=== PATIENT | male | born 1970 | race Caucasian/White ===

== ENCOUNTER 2023-09-18 14:26 | Emergency (ER) | payer BC, SELFPAY ==
[2023-09-18 14:36] VITALS: BP 172/98; PULSE 55; RESP 18; TEMP 37.1; O2SAT 96; BMI 30.1
--- NOTE | 2023-09-18 17:15 | MR_ITS ---
Patient: ISRA Sen [facility] [place] Facility:?[facility] Patient ID:?[id number] Site Patient ID:?[id number]. Site :?1970 Study:?MRI-Head MRA W/O-09/18/2023 6:44:42 PM Ordering Physician:DELICIA Final Report: Indication: Neuro deficit. Stroke. Technique: MRI Head: Performed without and with intravenous contrast. MRA Head: Performed without IV contrast. MRA Neck: Performed without and with intravenous contrast. Contrast: 20 cc Dotarem. Comparison: None relevant available at the time of interpretation. Findings: MRI Head: The corpus callosum, pituitary gland and clivus appear intact. Craniocervical junction is preserved. There is no restricted diffusion. No intracranial hemorrhage. The ventricles are proportionate to the cerebral sulci. The 4th ventricle appears midline. The basal cisterns appear patent. No abnormal extra-axial fluid collection identified. There is no intracranial mass, abnormal mass-effect or midline shift identified. No abnormal enhancement. The orbits are preserved. MRA Head: The visualized first and second order intracranial vessels are unremarkable. No occlusion/filling defect or acquired arterial stenosis identified. No aneurysm or vascular malformation seen. MRA Neck: No evidence for hemodynamically significant internal carotid artery stenosis by NASCET criteria. Right internal carotid artery tortuosity. The cervical segments of both vertebral arteries are patent. The visualized portions of the aortic arch, great vessel origins and proximal subclavian arteries are unremarkable. Impression: MRI Head: 1. No acute/subacute infarct. MRA Head: 1. No hemodynamically significant stenosis or occlusion. 2. No aneurysm. MRA Neck: 1. No evidence for hemodynamically significant ICA stenosis by NASCET criteria. Dictated by Angel Mendosa MD @ 09/18/2023 7:20:17 PM Signed by:?Angel Mendosa MD @09/18/2023 7:20:17 PM (Electronic Signature)
--- NOTE | 2023-09-18 17:15 | MR_ITS ---
Patient: ISRA Sen [facility] Facility:?[facility] Patient ID:?[id number] Site Patient ID:?[id number]. Site :?1970 Study:?MRI-Head W/ and W/O Cont 20 CC DOATERM-09/18/2023 6:43:13 PM Ordering Physician:DELICIA Final Report: Indication: Neuro deficit. Stroke. Technique: MRI Head: Performed without and with intravenous contrast. MRA Head: Performed without IV contrast. MRA Neck: Performed without and with intravenous contrast. Contrast: 20 cc Dotarem. Comparison: None relevant available at the time of interpretation. Findings: MRI Head: The corpus callosum, pituitary gland and clivus appear intact. Craniocervical junction is preserved. There is no restricted diffusion. No intracranial hemorrhage. The ventricles are proportionate to the cerebral sulci. The 4th ventricle appears midline. The basal cisterns appear patent. No abnormal extra-axial fluid collection identified. There is no intracranial mass, abnormal mass-effect or midline shift identified. No abnormal enhancement. The orbits are preserved. MRA Head: The visualized first and second order intracranial vessels are unremarkable. No occlusion/filling defect or acquired arterial stenosis identified. No aneurysm or vascular malformation seen. MRA Neck: No evidence for hemodynamically significant internal carotid artery stenosis by NASCET criteria. Right internal carotid artery tortuosity. The cervical segments of both vertebral arteries are patent. The visualized portions of the aortic arch, great vessel origins and proximal subclavian arteries are unremarkable. Impression: MRI Head: 1. No acute/subacute infarct. MRA Head: 1. No hemodynamically significant stenosis or occlusion. 2. No aneurysm. MRA Neck: 1. No evidence for hemodynamically significant ICA stenosis by NASCET criteria. Dictated by Angel Mendosa MD @ 09/18/2023 7:19:42 PM Signed by:?Angel Mendosa MD @09/18/2023 7:19:42 PM (Electronic Signature)
--- NOTE | 2023-09-18 17:15 | MR_ITS ---
Patient: ISRA Sen [facility] Facility:?[facility] Patient ID:?[id number] Site Patient ID:?[id number]. Site :?1970 Study:?MRI-Neck Angio W/ and W/O Cont 20 CC DOATERM-09/18/2023 6:45:58 PM Ordering Physician:DELICIA Final Report: Indication: Neuro deficit. Stroke. Technique: MRI Head: Performed without and with intravenous contrast. MRA Head: Performed without IV contrast. MRA Neck: Performed without and with intravenous contrast. Contrast: 20 cc Dotarem. Comparison: None relevant available at the time of interpretation. Findings: MRI Head: The corpus callosum, pituitary gland and clivus appear intact. Craniocervical junction is preserved. There is no restricted diffusion. No intracranial hemorrhage. The ventricles are proportionate to the cerebral sulci. The 4th ventricle appears midline. The basal cisterns appear patent. No abnormal extra-axial fluid collection identified. There is no intracranial mass, abnormal mass-effect or midline shift identified. No abnormal enhancement. The orbits are preserved. MRA Head: The visualized first and second order intracranial vessels are unremarkable. No occlusion/filling defect or acquired arterial stenosis identified. No aneurysm or vascular malformation seen. MRA Neck: No evidence for hemodynamically significant internal carotid artery stenosis by NASCET criteria. Right internal carotid artery tortuosity. The cervical segments of both vertebral arteries are patent. The visualized portions of the aortic arch, great vessel origins and proximal subclavian arteries are unremarkable. Impression: MRI Head: 1. No acute/subacute infarct. MRA Head: 1. No hemodynamically significant stenosis or occlusion. 2. No aneurysm. MRA Neck: 1. No evidence for hemodynamically significant ICA stenosis by NASCET criteria. Dictated by Angel Mendosa MD @ 09/18/2023 7:20:43 PM Signed by:?Angel Mendosa MD @09/18/2023 7:20:43 PM (Electronic Signature)
--- NOTE | 2023-09-18 17:33 | ED.NEUROSD ---
HPI - Neuro Symptoms/Deficit General Chief Complaint: Neuro Symptoms/Altered Deficit Stated Complaint: head pain, right side body pain, blurry vision Time Seen by Provider: 09/18/23 16:59 History of Present Illness HPI Narrative: This 53-year-old male comes in stating that he felt a pop in his head about 2 weeks ago with some pain that was deep in his head. He also had some hearing changes in his right ear. He states that since then he feels unsteady when walking and reports that he seems to stumble about every 50 ft. He also reports some weakness in his right hand with difficulty holding onto things at times. He states that this happened about 2 weeks ago and this is his 1st visit to a doctor because he reports that it seems to be getting worse. He is not on any medications except for some vitamins or herbal meds. He does not report any speech change. He states that it takes more concentration to interpret what he is hearing in conversation. Related Data Previous Rx's Medication Instructions Recorded hydrochlorothiazide 25 mg tablet 25 mg PO DAILY #30 tabs 09/18/23 meclizine 25 mg tablet 25 mg PO QID #20 tabs 09/18/23 ondansetron HCl 4 mg tablet 4 mg PO Q6H #20 tabs 09/18/23 Allergies Allergy/AdvReac Type Severity Reaction Status Date / Time latex Allergy Unknown Verified 09/18/23 14:42 Review of Systems Status of ROS: Reports: 10 or more systems reviewed and unremarkable except as noted in History and below Narrative: Constitutional: No fevers, no weight gain or loss. Eyes: No discharge. No vision changes. HENT: No congestion, no sore throat, no ear pain. Cardiovascular: No chest pain, no palpitations. Respiratory: No shortness of breath, no wheezes, no cough. Gastrointestinal: No abdominal pain, no vomiting, no diarrhea. Genitourinary: No dysuria, no hematuria. Musculoskeletal: Normal range of motion. Skin: No rashes, no pruritis. Neurological: He feels off balance. He reports some weakness in his right hand. He has hearing changes in his right ear. Endo/Heme/Allergies: No bruising or bleeding. No polydipsia. Pysch: no suicidality, no anxiety, no insomnia. All other systems reviewed and are negative. PFSH PFSH Social History Smoking Status: Current every day smoker What tobacco products do you use: cigarettes Smoking packs per day: 0.5 Smoking cigarettes per day: 10.0 How often do you have a drink containing alcohol: never How often do you have six or more drinks on one occasion: Never AUDIT-C Alcohol total score: 0 Non-prescribed substance use: denies use service: No Exam Narrative: Exam Narrative: Constitutional: Well-developed, well-nourished, no acute distress. HEENT: Normocephalic, atraumatic. Neck: Normal range of motion. Nontender. Supple. Heart: Regular. No murmurs. Normal rate. Intact distal pulses. Lungs: Clear to auscultation. No chest discomfort. No wheezes, rhonchi, or rales. Abdomen: Normal bowel sounds. Nontender. No rebound tenderness. Genitalia: Deferred. Back: No midline tenderness. Normal range of motion. Extremities: Normal range of motion. No injury. Skin: Intact. No rash. Warm. No erythema or pallor. Neurologic: No altered sensation. Alert and oriented. No facial asymmetry. Tongue is midline. Jcfllw-[id number]-jqos is normal. Hitting Coach strength is equal bilaterally. No pronator drift. He is able to raise each leg from the bed to my hand. Psychiatric: No suicidality. No anxiety or depression. No insomnia. Nursing notes and vitals signs are reviewed. Const: Vital Signs, click to edit/add: Vital Signs - 24 hr 09/18/23 14:36 09/18/23 20:07 Temperature 98.8 F Pulse Rate [Pulse Oximeter] 55 L 44 L Respiratory Rate 18 20 Blood Pressure [Ri ght Upper Arm] 172/98 H 150/93 H Pulse Oximetry 96 97 Oxygen Delivery Me thod Room Air Room Air Course Vital Signs Vital signs: Initial Vital Signs Temperature 98.8 F 09/18/23 14:36 Temperature Source Temporal Artery Scan 09/18/23 14:36 Pulse Rate 55 L 09/18/23 14:36 Respiratory Rate 18 09/18/23 14:36 Blood Pressure 172/98 H 09/18/23 14:36 Blood Pressure Mean 122 H 09/18/23 14:36 Pulse Oximetry 96 09/18/23 14:36 Oxygen Delivery Method Room Air 09/18/23 14:36 Vital Signs Temperature 98.8 F 09/18/23 14:36 Pulse Rate 55 L 09/18/23 14:36 Respiratory Rate 18 09/18/23 14:36 Blood Pressure 172/98 H 09/18/23 14:36 Pulse Oximetry 96 09/18/23 14:36 Oxygen Delivery Method Room Air 09/18/23 14:36 Temperature 98.8 F 09/18/23 14:36 Pulse Rate 44 L 09/18/23 20:07 Respiratory Rate 20 09/18/23 20:07 Blood Pressure 150/93 H 09/18/23 20:07 Pulse Oximetry 97 09/18/23 20:07 Oxygen Delivery Method Room Air 09/18/23 20:07 MDM - Neuro Symptoms/Deficit MDM Narrative Medical decision making narrative: This patient comes in with symptoms as described above. His neurologic exam actually was completely normal. I did initially have suspicion of stroke or tumor causing these symptoms. I did order MRI of head and neck and these results return with normal findings. The patient described right-sided symptoms with hearing changes and vertigo symptoms which may be due to Meniere's disease. He has a normal neurologic exam and with the normal MRI results this diagnosis becomes more likely. The patient did receive an oral dose of hydrochlorothiazide 25 mg and a prescription for the same along with prescriptions for Zofran and meclizine. I advised him to follow-up with ear nose and throat clinic. Lab Data Labs: Lab Results 09/18/23 09/18/23 09/18/23 Range/Units 17:30 17:30 17:30 WBC 11.46 H (4.50-11.00) K/uL RBC 5.36 (4.30-5.90) m/uL Hgb 16.2 (13.5-17.5) gm/dL Hct 49.2 (37.0-53.0) % MCV 92 (80-100) fL MCH 30 (26-34) pg MCHC 33 (32-36) gm/dL RDW Coeff of Joe 13.1 (11.5-15.5) % Plt Count 257 (140-440) K/uL Neut % (Auto) 73.4 H (42.0-72.0) % Lymph % (Auto) 20.2 (20-44) % Rutherford % (Auto) 4.2 (0.0-11.0) % Eos % (Auto) 1.0 (0.0-7.0) % Baso % (Auto) 0.3 (0.0-3.0) % Neut # (Auto) 8.40 H (1.7-7.0) K/uL Lymph # (Auto) 2.30 (0.90-2.90) K/uL Rutherford # (Auto) 0.50 (0.00-0.90) K/UL Eos # (Auto) 0.10 (0.00-0.50) K/uL Baso # (Auto) 0.00 (0.00-0.30) K/uL Abs Immat Gran (auto) 0.10 (0.00-0.30) K/uL Imm/Tot Granulo (auto) 0.9 % INR 1.04 (0.91-1.10) Sodium 141 (135-149) mmol/L Potassium 4.0 (3.6-5.1) mmol/L Chloride 106 (96-114) mmol/L Carbon Dioxide 23 (20-32) mmol/L Anion Gap 12 (7-15) mEq/L BUN 12 (7-30) mg/dL Creatinine 0.8 (0.5-1.5) mg/dL Estimated Creat Clear 119.90 Estimated GFR 107 ml/min Glucose 91 (60-115) mg/dL Calcium 9.6 (8.4-10.6) mg/dL Total Bilirubin 0.9 Cancelled (0.1-1.5) mg/dL Direct Bilirubin 0.3 Cancelled (0.0-0.5) mg/dL AST 25 (12-35) U/L ALT (4-50) U/L Alkaline Phosphatase (40-150) U/L Total Protein (6.0-8.3) g/dL Albumin (3.3-5.0) g/dL 09/18/23 09/18/23 09/18/23 Range/Units 17:30 17:30 17:30 WBC (4.50-11.00) K/uL RBC (4.30-5.90) m/uL Hgb (13.5-17.5) gm/dL Hct (37.0-53.0) % MCV (80-100) fL MCH (26-34) pg MCHC (32-36) gm/dL RDW Coeff of Joe (11.5-15.5) % Plt Count (140-440) K/uL Neut % (Auto) (42.0-72.0) % Lymph % (Auto) (20-44) % Rutherford % (Auto) (0.0-11.0) % Eos % (Auto) (0.0-7.0) % Baso % (Auto) (0.0-3.0) % Neut # (Auto) (1.7-7.0) K/uL Lymph # (Auto) (0.90-2.90) K/uL Rutherford # (Auto) (0.00-0.90) K/UL Eos # (Auto) (0.00-0.50) K/uL Baso # (Auto) (0.00-0.30) K/uL Abs Immat Gran (auto) (0.00-0.30) K/uL Imm/Tot Granulo (auto) % INR (0.91-1.10) Sodium (135-149) mmol/L Potassium (3.6-5.1) mmol/L Chloride (96-114) mmol/L Carbon Dioxide (20-32) mmol/L Anion Gap (7-15) mEq/L BUN (7-30) mg/dL Creatinine (0.5-1.5) mg/dL Estimated Creat Clear Estimated GFR ml/min Glucose (60-115) mg/dL Calcium (8.4-10.6) mg/dL Total Bilirubin (0.1-1.5) mg/dL Direct Bilirubin (0.0-0.5) mg/dL AST Cancelled (12-35) U/L ALT 21 Cancelled (4-50) U/L Alkaline Phosphatase 73 Cancelled (40-150) U/L Total Protein 8.8 H (6.0-8.3) g/dL Albumin (3.3-5.0) g/dL 09/18/23 09/18/23 Range/Units 17:30 17:30 WBC (4.50-11.00) K/uL RBC (4.30-5.90) m/uL Hgb (13.5-17.5) gm/dL Hct (37.0-53.0) % MCV (80-100) fL MCH (26-34) pg MCHC (32-36) gm/dL RDW Coeff of Joe (11.5-15.5) % Plt Count (140-440) K/uL Neut % (Auto) (42.0-72.0) % Lymph % (Auto) (20-44) % Rutherford % (Auto) (0.0-11.0) % Eos % (Auto) (0.0-7.0) % Baso % (Auto) (0.0-3.0) % Neut # (Auto) (1.7-7.0) K/uL Lymph # (Auto) (0.90-2.90) K/uL Rutherford # (Auto) (0.00-0.90) K/UL Eos # (Auto) (0.00-0.50) K/uL Baso # (Auto) (0.00-0.30) K/uL Abs Immat Gran (auto) (0.00-0.30) K/uL Imm/Tot Granulo (auto) % INR (0.91-1.10) Sodium (135-149) mmol/L Potassium (3.6-5.1) mmol/L Chloride (96-114) mmol/L Carbon Dioxide (20-32) mmol/L Anion Gap (7-15) mEq/L BUN (7-30) mg/dL Creatinine (0.5-1.5) mg/dL Estimated Creat Clear Estimated GFR ml/min Glucose (60-115) mg/dL Calcium (8.4-10.6) mg/dL Total Bilirubin (0.1-1.5) mg/dL Direct Bilirubin (0.0-0.5) mg/dL AST (12-35) U/L ALT (4-50) U/L Alkaline Phosphatase (40-150) U/L Total Protein Cancelled (6.0-8.3) g/dL Albumin 5.0 Cancelled (3.3-5.0) g/dL Imaging Data MRI - head: Radiologist's impression: MRI Head: 1. No acute/subacute infarct. MRA Head: 1. No hemodynamically significant stenosis or occlusion. 2. No aneurysm. MRA Neck: 1. No evidence for hemodynamically significant ICA stenosis by NASCET criteria. Discharge Plan Discharge Clinical Impression: Meniere's disease Patient Disposition: Home w/ Parent or Adult Condition: Unchanged Additional Instructions: Take medications as prescribed. Follow up [facility], Dr. Palma or Dr. Randle. Call [phone] for appointment. Return if worsening. Prescriptions: New ondansetron HCl 4 mg tablet 4 mg PO Q6H Qty: 20 0RF meclizine 25 mg tablet 25 mg PO QID Qty: 20 2RF hydrochlorothiazide 25 mg tablet 25 mg PO DAILY Qty: 30 2RF Follow Up/Referrals: Karan Ram PACliffordC [Primary Care Provider] - Stand Alone Forms: [employer] Info Instructions
[2023-09-18 17:43] LABS: Basophils Percent Auto 0.3 % (0.0-3.0); Hematocrit 49.2 % (37.0-53.0); Hemoglobin* 16.2 gm/dL (13.5-17.5); Immature Granulocytes Pct Auto 0.9 %; Lymphocytes Percent Auto 20.2 % (20-44); Mean Corpuscular HGB Conc 33 gm/dL (32-36); Mean Corpuscular Hemoglobin 30 pg (26-34); Mean Corpuscular Volume 92 fL (80-100); Monocytes Percent Auto 4.2 % (0.0-11.0); Neutrophils Percent Auto 73.4 % (42.0-72.0); Platelet Count* 257 K/uL (140-440); RDW Coefficient of Variation % 13.1 % (11.5-15.5); Red Blood Count 5.36 m/uL (4.30-5.90); White Blood Count* 11.46 K/uL (4.50-11.00)
[2023-09-18 17:45] LABS: Slide Review Reflex No
[2023-09-18 17:57] LABS: Chloride* 106 mmol/L (96-114)
[2023-09-18 17:58] LABS: Sodium* 141 mmol/L (135-149)
[2023-09-18 17:59] LABS: INR 1.04 (0.91-1.10); Prothrombin Time 14.2 Seconds
[2023-09-18 18:01] LABS: Alanine Aminotransferase* 21 U/L (4-50); Alkaline Phosphatase* 73 U/L (40-150); Anion Gap 12 mEq/L (7-15); Aspartate Amino Transferase* 25 U/L (12-35); Bilirubin Direct* 0.3 mg/dL (0.0-0.5); Bilirubin Total* 0.9 mg/dL (0.1-1.5); Blood Urea Nitrogen* 12 mg/dL (7-30); Calcium* 9.6 mg/dL (8.4-10.6); Carbon Dioxide* 23 mmol/L (20-32); Creatinine* 0.8 mg/dL (0.5-1.5); Estimated Glomerular Filt Rate 107 ml/min; Glucose* 91 mg/dL (60-115); Total Protein* 8.8 g/dL (6.0-8.3)
[2023-09-18 20:07] VITALS: BP 150/93; PULSE 44; RESP 20; O2SAT 97
[2023-09-18] MEDS: hydroCHLOROthiazide 25 MG TABLET PO (21:55)
== END 2023-09-18 21:55 | disposition home or self-care (01) ==
PROVIDERS: Emergency Provider Emergency Medicine Emergency Medical Services; PCP Physician Assistant Medical
DX: H81.09 Meniere's disease, unspecified ear (principal)
CPT/HCPCS: 36415; 70544; 70549; 70553; 80048; 80076; 85025; 85610; 99284; 99285; A9270; A9575

== ENCOUNTER 2023-10-24 13:57 | Outpatient (CLI) | payer MEDICAID, SELFPAY ==
[2023-10-25 00:18] LABS: Chlamydia DNA Amplified* NOT DETECTED (No Detected); GC DNA Amplified* NOT DETECTED (No Detected)
== END 2023-10-24 13:58 | disposition home or self-care (01) ==
PROVIDERS: PCP Physician Assistant Medical; Visit Provider Nurse Practitioner Family
DX: R30.0 Dysuria (principal); Z11.3 Encounter for screening for infections with a predominantly sexual mode of transmission
CPT/HCPCS: 86592; 86703; 86706; 86803; 87340; 87491; 87591

== ENCOUNTER 2023-10-31 10:36 | Outpatient (CLI) | payer MEDICAID, SELFPAY | END 2023-10-31 10:37 | disposition home or self-care (01) | LOC: NFLDREF 11-01 06:21 | PROVIDERS: PCP Physician Assistant Medical; Referring Provider Physician Assistant Medical; Visit Provider Physician Assistant Medical | DX: H93.11 Tinnitus, right ear (principal); H81.11 Benign paroxysmal vertigo, right ear | CPT/HCPCS: 80053; 82728; 84443 ==

== ENCOUNTER 2023-11-02 14:36 | Outpatient (RCR) | payer MEDICAID, SELFPAY ==
--- NOTE | 2023-11-02 16:00 | PT.OPE ---
PT [facility] Outpatient Eval PT [facility] Outpatient Eval Start: 11/02/23 13:30 Freq: Status: Active Protocol: Document 11/02/23 15:58 CJT (Rec: 11/02/23 16:00 CJT [id number]) E-signed By Nathan Jewell PT Physical Therapy Outpatient Evaluation Insurance Information Recert Due Date 01/31/24 Insurance Name Medicaid,are Medical Diagnosis H81.1 - BPV Referring Karan Rice PAC Subjective Subjective Pt presents with complaints of ringing in his ear and dizziness. Pt was on the phone talking to his niece on when he felt a pop in the back of the R side of his skull. Was loud/strong enough that he felt stunned for a bit . Isn't sure if he was moving his neck at the time. Over the next few days, severe ringing started in the back Right side of his head. Eventually started to lose his balance while working. Pt did go to the ED on 09/18/23 and was diagnosed with Meniere's disease. Is having a lot of trouble sleeping due to the ringing in his ears. Sounds like he is working next to a [employer]. Reports having a little bit of dizziness. Ringing in his ears and dizziness seems to eb and flow . Pt reports approx 4 bouts of dizziness daily but does not feel that they correlate with any activities or specific movements. 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 Currently unemployed due to his condition. Job duties require walking along catwalks and he is not able to do this at this time. Date of Last Physician Visit 10/31/23 Current Work Status Unemployed Occupation Insurance [employer] Preferred Name Ian Precautions Therapy Limitations/Systems Review Not Limited Objective Other/Pertinent Objective Cervical ROM Extension - 45 feels a pinch on R cervical region Flexion - 40 R/L Sidebend - 45/35 *feels a pinch in ipsiltaeral side with B sidebending R/L Rotation - 60/71 Oculomotor Testing Gaze Stabilization: negative Smooth Pursuits: negative Saccades: negative Convergence: R eye not tracking medially Head Shake: negative Head Thrust: negative Positional Testing -R Washington-Hallpike: very minimal torsional nystagmus noted -L Luis-Hallpike: negative -R Roll: negative -L Roll: negative Modified Romberg -Eyes open, firm surface: no sway -Eyes closed, firm surface: normal sway -Eyes open, foam surface: no sway -Eyes closed, foam surface: normal sway Palpation: pt notes tenderness with palpation to R>L suboccipitals, L>R UT, B scalenes Assessment Assessment/Impression Ian is a very pleasant 53 year old male who presents to our clinic for evaluation of dizziness. Pts description of his dizziness was variable throughout today's evaluation including sensation of loss of balance, feeling like he just got off the [id number], and also not knowing which way was up or where he was. HIs primary complaint however, is a constant noise that he describes as the sound of a [employer]. Pt understands that physical therapy will not be able to help with this sound but may help with the dizziness that he has been experiencing. A Washington/Hallpike to the R was mildly positive today for nystagmus but pt denied dizziness during. Pts R eye lacks the ability to converge when compared to L and I do think a referral to vision therapy and/or power plant installer may be beneficial for him. I would like Ian to meet with our BPPV specialist Sim Maria next week - pt agrees. The suspected nature of the pts condition was explained and all questions were answered to the pts satisfaction. Skilled PT services are medically necessary to address deficits and return patient to highest level of function. Recommend physical therapy sessions 1/ week for 4-6 weeks. Pt agrees with this plan. Printout of HEP was given for I completion and pt gives verbal understanding of each exercise . Primary Functional Limitations Sleeping, walking Plan of Care Rehabilitation Potential Fair Physical Therapy Goals STG - To be completed in 2-3 weeks: 1. Pt will report reduction in dizziness frequency and intensity so that they may return to full work duties. LTG - To be completed in 4 weeks: 1. Pt will report ability to roll over in bed to either side without onset of dizziness so that they may roll over in bed without waking. Treatment Plan/Direct Interventions Canalith Repositioning,Heat, Ice/Cold/Vasopneumatic,Joint Mobilization,Manual Therapy, Neuromuscular Re-ed,Self-Care/ Home Management,Therapeutic Activities,Therapeutic Exercises Frequency/Duration 1/week for 4 weeks Patient Will Be Discharged From Therapy Completion of LTG(s),Skills Plateau,Independent w/HEP, Independently Progressing Evaluation Billing Untimed Code Treatment Minutes 50 PT Eval No Charge No Complexity Low Certification Information Initial Certification Date 11/02/23 Ending Certification Date 01/31/24 Provider Signature Shows Agreement With POC & Medical Necessity Physician Signature & Date Requested Please Sign/Date Here Physician Comment/Change : Physician NPI Number #
== END 2023-11-28 15:22 | disposition home or self-care (01) ==
PROVIDERS: PCP Physician Assistant Medical; Visit Provider Physician Assistant Medical
DX: H81.11 Benign paroxysmal vertigo, right ear (principal); Z51.89 Encounter for other specified aftercare
CPT/HCPCS: 97161